=== PATIENT | male | born 1975 | race Caucasian/White ===

== ENCOUNTER 2022-08-22 08:57 | Outpatient (REF) | payer BC, SELFPAY ==
[2022-08-22 11:14] LABS: MANUAL DIFF FLAG NO
[2022-08-22 11:21] LABS: Basophils Absolute Auto 0.1 X10*3/uL (0.0-0.2); Basophils Percent Auto 0.8 % (0-2); Eosinophils Absolute Auto 0.2 X10*3/uL (0.0-0.4); Hematocrit 49.2 % (42.0-52.0); Hemoglobin 16.1 g/dl (14.0-18.0); Imm Gran Abs Auto 0.01 X10*3/uL (0.00-0.03); Imm Gran Pct Auto 0.2 % (0.0-0.4); Lymphocytes Absolute Auto 2.1 X10*3/uL (1.2-4.9); Lymphocytes Percent Auto 32.5 % (20-40); Mean Corpuscular HGB Conc 32.7 g/dl (31.0-36.0); Mean Corpuscular Hemoglobin 29.8 pg (27.0-33.0); Mean Corpuscular Volume 90.9 fL (80.0-98.0); Mean Platelet Volume 10.7 fL (9.4-12.4); Monocytes Absolute Auto 0.6 X10*3/uL (0.1-1.2); Monocytes Percent Auto 9.8 % (2-11); Neutrophils Absolute Auto 3.5 x10*3/uL (2.0-8.3); Neutrophils Percent Auto 53.7 % (45-73); Platelet Count 242 X10*3/uL (160-400); Red Blood Count 5.41 X10*6/uL (4.60-5.80); Red Cell Distribution Width 12.2 % (11.0-16.0); White Blood Count 6.4 X10*3/uL (4.8-10.8)
[2022-08-22 11:50] LABS: Alanine Aminotransferase 16 U/L (0-40); Albumin Level 4.2 g/dL (3.5-5.0); Alkaline Phosphatase 83 U/L (39-117); Anion Gap 11 (12-20); Aspartate Amino Transferase 21 U/L (5-37); Bilirubin Total 0.3 mg/dL (0.0-1.0); Blood Urea Nitrogen 16 mg/dL (9-16); Calcium 9.1 mg/dL (8.4-10.2); Carbon Dioxide 27 mmol/L (22-29); Chloride 106 mmol/L (96-108); Cholesterol 173 mg/dL; Estimated Glomerular Filt Rate > 60; Glucose Fasting 92 mg/dL (60-99); HDL Cholesterol 46 mg/dL; LDL Cholesterol Calculated 111 mg/dl; Potassium 4.2 mmol/L (3.3-5.1); Sodium 140 mmol/L (135-145); Total Protein 7.3 g/dL (6.5-8.0); Triglycerides 82 mg/dL
== END 2022-08-22 08:58 | disposition home or self-care (01) ==
LOC: HO.HMGCLDS 08:57
PROVIDERS: PCP Internal Medicine; Visit Provider Internal Medicine
DX: Z00.00 Encounter for general adult medical examination without abnormal findings (principal)
CPT/HCPCS: 36415; 80053; 80061; 85025

== ENCOUNTER 2023-03-30 08:30 | Outpatient (AMB) | payer BC, SELFPAY ==
[2023-03-30 08:31] VITALS: BP 106/72; PULSE 72; O2SAT 95; BMI 24.1
--- NOTE | 2023-03-30 08:31 | A.OFFPC_ITS ---
Vital Signs 03/30/23 08:31 Height 5 ft 10 in Weight 168 lb BMI 24.1 BP 106/72 Blood Pressure Location Lt brachial Position Sitting Pulse 72 Pulse Source Pulse Oximeter Pulse Oximetry (%) 95 Oxygen Delivery Method Room Air Intake Visit Reasons: ER follow up Intake Note: Pt is here today for ER follow up. Pt states that he went to [facility] ER. Allergies No Known Allergies Allergy (Verified 03/30/23 08:34) Medication List - Last Reconciled 03/30/23 by Mary Ray MD baclofen 10 mg PO BEDTIME meloxicam 15 mg PO DAILY Tobacco use date assessed: 03/30/23 Dental Screening Dental Screen Date: 03/30/23 Did you have a dental visit in the last 12 months?: Yes Did you have a dental problem in the last 6 months where you did not have access to dental care?: No Was dental information given to patient?: Patient has dentist HPI ER follow up HPI Details Pt presents for f/u ER visit for right flank and lower back pain, positional for 1 week. ER w/u was negative including CT of abd/pelvic. Patient has been taking ibuprofen with some relief. He denies fever chills nausea vomiting hematuria or dysuria, change in bowel habits. [facility], [facility] Surgical History History of nasal surgery Family History (Updated 03/30/23 @ 08:36 by Morena Lambert [facility]) Father No problems noted. Mother No problems noted. Social History Housing: House Patient Tobacco Use Status: Never used Tobacco e-Cigarette/Vaping Use: Never Used Current occupational status: employed Cognitive needs: No Hearing needs: No Vision needs: Yes Questionnaire PHQ-9 Over the last 2 weeks, how often have you been bothered by any of the following problems? 1. Little interest or pleasure in doing things: not at all 2. Feeling down, depressed, or hopeless: not at all 3. Trouble falling or staying asleep, or sleeping too much: not at all 4. Feeling tired or having little energy: not at all 5. Poor appetite or overeating: not at all 6. Feeling bad about yourself - or that you are a failure or have let yourself or your family down: not at all 7. Trouble concentrating on things, such as reading the newspaper or watching television: not at all 8. Moving or speaking so slowly that other people could have noticed. Or the opposite - being so fidgety or restless that you have been moving around a lot more than usual: not at all 9. Thoughts that you would be better off or of hurting yourself in some way: not at all Total score: 0 Depression Screening Interpretation: Negative Source: Developed by Drs. Juan Francisco Victor, Karen Kerns, Valentin Giron and colleagues, with an educational nanette from [employer] Thrive Questionnaire Date Thrive assessed: 03/30/23 I am a: Patient What is your living situation today?: I have a steady place to live Within the past 12 months, did the food you bought not last and you didn't have the money to get more?: Never true Within the past 12 months, did you worry whether your food would run out before you got money to buy more?: Never true Do you have trouble paying for medicines?: No Do you have trouble getting transportation to medical appointments?: No Do you have trouble paying your heating and electricity bill?: No Do you have trouble taking care of your child, family member or friend?: No Do you have trouble with day-to-day activities such as bathing, preparing meals, shopping, managing finances, etc.?: No Are you currently unemployed and looking for a job?: No Are you interested in more education?: No Please select the resources that you would like help with: None Currently or been in a relationship where the following occur: no concerns reported AUDIT C Alcohol Use Questionnaire (AUDIT-C) 1. How often do you have a drink containing alcohol?: Monthly or less 2. How many drinks containing alcohol do you have on a typical day when you are drinking?: 1 or 2 3. How often do you have six or more drinks on one occasion?: Never Total Score: 1 MADONNA-7 AMB Questionnaire MAODNNA-7 Date MADONNA - 7 assessed: 03/30/23 Feeling nervous, anxious, or on edge: 0 = Not at all Not being able to stop or control worryin = Not at all Worrying too much about different things: 0 = Not at all Trouble relaxin = Not at all Being so restless that it is hard to sit still: 0 = Not at all Becoming easily annoyed or irritable: 0 = Not at all Feeling afraid as if something awful might happen: 0 = Not at all Total MADONNA-7 score (0-4 normal; 5-9 mild; 10-14 moderate; 15-21 severe): 0 Source: Developed by Drs. Juan Francisco Victor, Karen Kerns, Valentin Giron and colleagues, with an educational nanette from [employer] Review of Systems Const All systems reviewed & are unremarkable except as noted in HPI and below Eyes Reports no additional complaints ENT Reports no additional complaints Card Reports no additional complaints Resp Reports no additional complaints GI Reports no additional complaints Reports no additional complaints Physical exam (Primary Care) Vital Signs: Last Vital Signs Pulse 72 03/30/23 08:31 BP 106/72 03/30/23 08:31 Pulse Ox 95 03/30/23 08:31 Oxygen Delivery Method Room Air 03/30/23 08:31 BMI result Body Mass Index 24.1 Tobacco/Smoking Status: Tobacco use Status Tobacco use date assessed 03/30/23 03/30/23 08:37 Patient Tobacco Use Status Never used Tobacco 03/30/23 08:37 e-Cigarette/Vaping Use Never Used 03/30/23 08:37 PHQ-9: PHQ-9 Score PHQ-9: Total score 0 03/30/23 08:37 Depression Screening Interpretation: Negative Thrive Assessment: Date of Thrive Assessment Date Thrive assessed 03/30/23 03/30/23 08:37 Currently or been in a relationship where the following occur: no concerns reported Const General: no acute distress HENMT Head: Yes normal to inspection Neck Neck: Yes supple Resp Effort & Inspection: normal respiratory effort Auscultation: clear to auscultation bilaterally Cardio Rhythm: regular rhythm Heart sounds: S1 normal heart sound present and S2 normal heart sound present GI Inspection: Yes normal to inspection Palpation (GI): Soft to palpation Percussion: Yes normal to percussion Auscultation: normal bowel sounds Assessment and Plan Assessment & Plan (1) Sciatica: Code(s): M54.30 - Sciatica, unspecified side Plan: Meloxicam and baclofen are prescribed and patient will be referred for physical therapy. he was given work restriction to decrease frequency of lifting and twisting body for 2 months Orders: Orders PT Evaluation and Treatment Today M54.30 - Sciatica, unspecified side Medications: New baclofen 10 mg PO BEDTIME 20 tabs 0RF meloxicam 15 mg PO DAILY 20 tabs 0RF Coding Level of Care Code Est Pt Level 3 (15812) Diagnoses Sciatica M54.30
== END 2023-03-30 09:06 | disposition home or self-care (01) ==
PROVIDERS: PCP Internal Medicine; Visit Provider Internal Medicine
DX: M54.30 Sciatica, unspecified side (principal)
CPT/HCPCS: 99213

== ENCOUNTER 2023-04-26 15:00 | Outpatient (RCR) | payer BC, SELFPAY ==
--- NOTE | 2023-04-05 15:52 | MHC.PT.EP ---
[facility] [place] Office [place] Office [place] Office [address] Brittani Naylor [address] [phone] F: [phone] F: [phone] F: [phone] F: [phone] Physical Therapy Plan of Care Date of Evaluation: Date of Surgery: n/a Diagnosis: sciatica Assessment: Patient is a 47 year old male presenting to PT with complaints of pain in his low back. Pt reports onset of pain began about 1 week ago due to insidious onset. He presents today with impairments in pain, ROM, core strength, and hip strength. 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 Clinical presentation today is most consistent with signs and sx associated with low back pain and pt will benefit from skilled PT 1 week x 4 weeks to address the following problems and impairments noted upon evaluation: pain, ROM, core strength, and hip strength. These problems limit the patient with the following functional activities: work, ADLs. The prescribed treatment plan of care is medically necessary. Co-morbidities of none were identified and taken into considerations of plan of care. Pt was educated on HEP, role of PT, prognosis, POC. Frequency and Duration: The patient will be seen 1 x week x 4 weeks Short Term Goals: Pt will demonstrate improved hip MMT strength by 1/3 grade in 2 weeks. Pt will demonstrate ability to perform PPT with good core recruitment in 2 weeks for improved lumbar stability. 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 Pt will demonstrate ability to complete ADLs with min to no pain in 4 weeks for return to PLOF. Pt will demonstrate ability to work a full day with min to no pain in 4 weeks for return to work at full duty. Treatment Plan: Modalities to reduce pain, spasms and effusion. Manual therapy to restore motion and function. Therapeutic exercise to improve strength and flexibility. Neuromuscular re-education for posture and balance. Therapeutic activities to return to functional activities of daily living. Electronically signed by: Evon Calle, PT, DPT, ATC Please sign and return to therapist. Thank you for your referral.
--- NOTE | 2023-05-28 07:44 | MHC.PT.DC ---
[facility] [place] Office [place] Office [place] Office [address] Brittani Naylor [address] [phone] F: [phone] F: [phone] F: [phone] F: [phone] Physical Therapy Discharge Report Diagnosis: sciatica Date of Surgery: n/a Date of Evaluation: 04/05/23 Date of Discharge: 05/28/23 Treatments to Date: 4 Cancellations to Date: 0 No Shows to Date: 1 Discharge Status: Visit Non-compliance Discharge Summary: Pt no showed his final appointment. He has not reached out in >30 days to be rescheduled and therefore to be d/c at this time. Electronically signed by: Evon Calle, PT, DPT, ATC Please sign and return to therapist. Thank you for your referral.
== END 2023-05-28 07:44 | disposition home or self-care (01) ==
LOC: HO.PTCHIC 15:00
PROVIDERS: PCP Internal Medicine; Visit Provider Internal Medicine
DX: M54.30 Sciatica, unspecified side (principal)
CPT/HCPCS: 97110; 97161

== ENCOUNTER 2023-05-04 11:53 | Outpatient (AMB) | payer BC, SELFPAY ==
[2023-05-04 12:06] VITALS: BP 108/64; PULSE 76; O2SAT 97; BMI 23.6
--- NOTE | 2023-05-04 12:06 | A.OFFPC_ITS ---
Vital Signs 05/04/23 12:06 Height 5 ft 10 in Weight 164 lb 6 oz BMI 23.6 BP 108/64 Blood Pressure Location Rt brachial Position Sitting Pulse 76 Pulse Source Pulse Oximeter Pulse Oximetry (%) 97 Oxygen Delivery Method Room Air Intake Visit Reasons: Follow up questions to discuss with the doctor Allergies No Known Allergies Allergy (Verified 05/04/23 12:07) Medication List - Last Reconciled 05/04/23 by Mary Ray MD Tobacco use date assessed: 03/30/23 HPI Follow up questions to discuss with the doctor HPI Details Pt presents for c/o constipation on and off for 2 weeks. Pt denies abd pain, hematochezia, N/V. Patient took baclofen and meloxicam 2 weeks ago for acute sciatica which resolved since then. Patient denies lower extremities pain or weakness. He had a CT of the abdomen in February for left flank pain which was consistent with constipation. Patient had negative Cologuard in August. [facility] Surgical History History of nasal surgery Family History Father No problems noted. Mother No problems noted. Social History Housing: House Patient Tobacco Use Status: Never used Tobacco e-Cigarette/Vaping Use: Never Used Current occupational status: employed Cognitive needs: No Hearing needs: No Vision needs: Yes Questionnaire Thrive Questionnaire Date Thrive assessed: 03/30/23 MADONNA-7 AMB Questionnaire MADONNA-7 Date MADONNA - 7 assessed: 03/30/23 Source: Developed by Drs. Juan Francisco Victor, Karen Kerns, Valentin Giron and colleagues, with an educational nanette from [employer]. Review of Systems Const All systems reviewed & are unremarkable except as noted in HPI and below Reports no additional complaints Eyes Reports no additional complaints ENT Reports no additional complaints Card Reports no additional complaints GI Reports no additional complaints Musc Reports no additional complaints Physical exam (Primary Care) Vital Signs: Last Vital Signs Pulse 76 05/04/23 12:06 BP 108/64 05/04/23 12:06 Pulse Ox 97 05/04/23 12:06 Oxygen Delivery Method Room Air 05/04/23 12:06 BMI result Body Mass Index 23.6 Tobacco/Smoking Status: Tobacco use Status Tobacco use date assessed 03/30/23 05/04/23 12:09 Patient Tobacco Use Status Never used Tobacco 05/04/23 12:09 e-Cigarette/Vaping Use Never Used 05/04/23 12:09 Thrive Assessment: Date of Thrive Assessment Date Thrive assessed 03/30/23 05/04/23 12:09 Const General: no acute distress HENMT Head: Yes normal to inspection Neck Neck: Yes supple Resp Effort & Inspection: normal respiratory effort Auscultation: clear to auscultation bilaterally Cardio Rhythm: regular rhythm Heart sounds: S1 normal heart sound present and S2 normal heart sound present GI Inspection: Yes normal to inspection Palpation (GI): Soft to palpation Percussion: Yes normal to percussion Auscultation: normal bowel sounds Assessment and Plan Assessment & Plan (1) Constipation: Code(s): K59.00 - Constipation, unspecified Plan: For worsening constipation patient was advised to start taking Citrucel daily, increase fiber and fluid intake, increase physical activity. He was advised to take MiraLax pr if there is no improvement on Citrucel. Patient will be referred to GI for colonoscopy Orders: Referrals Gastroenterology Referral Z00.00 - Encounter for general adult medical examination without abnormal findings Coding Level of Care Code Est Pt Level 3 (96532) Diagnoses Constipation K59.00
== END 2023-05-04 15:00 | disposition home or self-care (01) ==
PROVIDERS: PCP Internal Medicine; Visit Provider Internal Medicine
DX: K59.00 Constipation, unspecified (principal)
CPT/HCPCS: 99213

== ENCOUNTER 2023-06-30 10:48 | Outpatient (AMB) | payer BC, SELFPAY ==
--- NOTE | 2023-06-30 10:54 | A.OFFVIS_ITS ---
Intake Vital Signs 06/30/23 10:58 Height 5 ft 6 in Weight 176 lb BMI 28.4 BP 121/84 Blood Pressure Location Lt brachial Position Sitting Pulse 80 Intake Visit Reasons: [place] Screening Intake Note: Patient new consult for 1st pre colonoscopy screening. Patient cc: abdominal pain, hard stool and really discomfort. Denies any other GI issues. Chain Person Required: No Accompanied by: Self / Same As Patient Allergies No Known Allergies Allergy (Verified 06/30/23 10:54) Medication List - Last Reconciled 06/30/23 by Kerri Lee PA-C No Known Home Meds HPI HPI Comments History of Present Illness Details A 47 y/o male referred for index screening colonoscopy. He has no GI complaints Appetite is very good. Bowels are normal but hard -at times No respiratory or cardiac issues- LBP- wanders- had CT for kidney stones-was negative No nausea, vomiting, hematemesis, hematochezia fever or chills PFSH Surgical History History of nasal surgery Family History Father No problems noted. Mother No problems noted. Social History Housing: House Patient Tobacco Use Status: Never used Tobacco e-Cigarette/Vaping Use: Never Used Current occupational status: employed Cognitive needs: No Hearing needs: No Vision needs: Yes Review of Systems Const All systems reviewed & are unremarkable except as noted in HPI and below Card Denies chest pain and Denies dyspnea Resp Denies dyspnea GI Denies abdominal pain, Denies heartburn, Denies diarrhea, Denies loose stools, Denies nausea and Denies vomiting Musc Reports back pain Psych Reports anxiety Physical Exam Vital Signs: Last Vital Signs Pulse 80 06/30/23 10:58 BP 121/84 06/30/23 10:58 BMI result Body Mass Index 28.4 Const General: cooperative, healthy appearing and comfortable Orientation/consciousness: patient oriented x3 Limitations: no limitations Eyes Sclerae: sclerae normal Resp Effort & Inspection: normal respiratory effort and able to speak in complete sentences Auscultation: clear to auscultation bilaterally, no rales, no rhonchi and no wheezes Cardio Rate: regular rate Rhythm: regular rhythm Heart sounds: S1 normal heart sound present and S2 normal heart sound present GI Inspection: Yes normal to inspection Palpation (GI): Soft to palpation and nontender Auscultation: normal bowel sounds Skin General skin exam: no rashes or lesions noted Neuro General: patient oriented x3 Extrem General: Yes full ROM Psych Appearance: grossly normal and well kempt Mental Status: mental status grossly normal Speech and movement: Normal speech and movement present Affect: normal affect Attitude: cooperative Thought process: Normal thought process present Thought content: Normal thought content present Insight: Good insight present (Psych) Judgement: Good judgement present (Psych) Assessment & Plan Assessment & Plan (1) Constipation: Code(s): K59.00 - Constipation, unspecified Plan: Maintain high-fiber diet Stools softeners (2) Encounter for screening colonoscopy: Comment: Discussed procedure, rare risk, need for escorted due to anesthesia and prep Code(s): Z12.11 - Encounter for screening for malignant neoplasm of colon Plan: Index screening colonoscopy Plan Index screening colonoscopy MiraLax Gatorade split-Yemeni instructions given-reviewed with parachute panel joiner Orders: Orders Colonoscopy - GI Use Only Today Z12.11 - Encounter for screening for malignant neoplasm of colon Medications: New bisacodyl (Dulcolax (bisacodyl)) Day before procedure, prep day Take 4 tablets by mouth upon awakening followed by large glass of water 20 mg (4 x 5 mg) PO ONCE 1 day 4 tabs 0RF colonoscopy prep Z12.11 - Encounter for screening for malignant neoplasm of colon polyethylene glycol 3350 (Miralax) Take as directed by mouth the day before your procedure. 238 grams PO ONCE 1 day 238 grams 0RF laxative effect docusate sodium (Colace) 200 mg (2 x 100 mg) PO BEDTIME 60 caps 5RF 30 days Patient Instructions: Index screening colonoscopy MiraLax Gatorade split-Yemeni instructions given-reviewed with parachute panel joiner Encouraged to call questions or concerns Coding Level of Care Code New Pt Level 3 (03085) Diagnoses Constipation K59.00 Encounter for screening colonoscopy Z12.11 Time Spent (min) 30 Comment
[2023-06-30 10:58] VITALS: BP 121/84; PULSE 80; BMI 28.4
== END 2023-06-30 12:19 | disposition home or self-care (01) ==
PROVIDERS: PCP Internal Medicine; Visit Provider Physician Assistant
DX: K59.00 Constipation, unspecified (principal); Z12.11 Encounter for screening for malignant neoplasm of colon
CPT/HCPCS: 99203

== ENCOUNTER → 2023-06-30 10:48 | Outpatient (BNVA) | payer BC, SELFPAY | PROVIDERS: PCP Internal Medicine; Visit Provider Physician Assistant ==

== ENCOUNTER 2023-09-16 11:41 | Outpatient (AMB) | payer BC, SELFPAY ==
--- NOTE | 2023-09-16 12:03 | MHC.PC.OV ---
Vital Signs 09/16/23 12:04 Height 5 ft 6 in Weight 172 lb BMI 27.8 BP 110/64 Blood Pressure Location Lt brachial Position Sitting Pulse 78 Pulse Source Pulse Oximeter Temp 98 F Pulse Oximetry (%) 98 Oxygen Delivery Method Room Air Intake Visit Reasons: Annual PE/missed on 08/24/23 Intake Note: Pt is here today for PE. Allergies No Known Allergies Allergy (Verified 06/30/23 10:54) Medication List - Last Reconciled 09/16/23 by Mary Ray MD bisacodyl (Dulcolax (bisacodyl)) 20 mg (4 x 5 mg) PO ONCE 1 day docusate sodium (Colace) 200 mg (2 x 100 mg) PO BEDTIME 30 days polyethylene glycol 3350 (Miralax) 238 grams PO ONCE 1 day Tobacco use date assessed: 09/16/23 Dental Screening Dental Screen Date: 09/16/23 Did you have a dental visit in the last 12 months?: Yes Did you have a dental problem in the last 6 months where you did not have access to dental care?: No Was dental information given to patient?: Patient has dentist HPI Annual PE/missed on 08/24/23 HPI Details Pt presents for PE. Pt c/o persistent for 1 year an and off mid abd discomfort worse when bending forward or lifting heavy at work. Patient went to the ER in March and had negative CT of abdomen pelvis without contrast. Patient denies any relation to food intake. He denies nausea vomiting change in appetite hematochezia melena dysuria or urinary frequency hematuria weight lost fever chills night sweats. Patient noticed a change in his stool appearance, more fragmented. He has a colonoscopy scheduled for October. [facility] Surgical History History of nasal surgery Family History Father No problems noted. Mother No problems noted. Social History Housing: House Patient Tobacco Use Status: Never used Tobacco e-Cigarette/Vaping Use: Never Used Current occupational status: employed Cognitive needs: No Hearing needs: No Vision needs: Yes Questionnaire PHQ-9 Over the last 2 weeks, how often have you been bothered by any of the following problems? 1. Little interest or pleasure in doing things: not at all 2. Feeling down, depressed, or hopeless: not at all 3. Trouble falling or staying asleep, or sleeping too much: not at all 4. Feeling tired or having little energy: not at all 5. Poor appetite or overeating: not at all 6. Feeling bad about yourself - or that you are a failure or have let yourself or your family down: not at all 7. Trouble concentrating on things, such as reading the newspaper or watching television: not at all 8. Moving or speaking so slowly that other people could have noticed. Or the opposite - being so fidgety or restless that you have been moving around a lot more than usual: not at all 9. Thoughts that you would be better off or of hurting yourself in some way: not at all Total score: 0 Depression Screening Interpretation: Negative Depression Screening Done: Yes Source: Developed by Drs. Juan Francisco Victor, Karen Kerns, Valentin Giron and colleagues, with an educational nanette from [employer]. Thrive Questionnaire Date Thrive assessed: 03/30/23 I am a: Patient What is your living situation today?: I have a steady place to live Within the past 12 months, did the food you bought not last and you didn't have the money to get more?: Never true Within the past 12 months, did you worry whether your food would run out before you got money to buy more?: Never true Do you have trouble paying for medicines?: No Do you have trouble getting transportation to medical appointments?: No Do you have trouble paying your heating and electricity bill?: No Do you have trouble taking care of your child, family member or friend?: No Do you have trouble with day-to-day activities such as bathing, preparing meals, shopping, managing finances, etc.?: No Are you currently unemployed and looking for a job?: No Are you interested in more education?: No Please select the resources that you would like help with: None Currently or been in a relationship where the following occur: no concerns reported AUDIT C Alcohol Use Questionnaire (AUDIT-C) 1. How often do you have a drink containing alcohol?: Monthly or less 2. How many drinks containing alcohol do you have on a typical day when you are drinking?: 1 or 2 3. How often do you have six or more drinks on one occasion?: Never Total Score: 1 MADONNA-7 AMB Questionnaire MADONNA-7 Date MADONNA - 7 assessed: 09/16/23 Feeling nervous, anxious, or on edge: 0 = Not at all Not being able to stop or control worryin = Not at all Worrying too much about different things: 0 = Not at all Trouble relaxin = Not at all Being so restless that it is hard to sit still: 0 = Not at all Becoming easily annoyed or irritable: 0 = Not at all Feeling afraid as if something awful might happen: 0 = Not at all Total MADONNA-7 score (0-4 normal; 5-9 mild; 10-14 moderate; 15-21 severe): 0 Source: Developed by Drs. Juan Francisco Victor, Karen Kerns, Valentin Giron and colleagues, with an educational nanette from [employer]. Review of Systems Const All systems reviewed & are unremarkable except as noted in HPI and below Reports no additional complaints Eyes Reports no additional complaints ENT Reports no additional complaints Card Reports no additional complaints Resp Reports no additional complaints GI Reports no additional complaints Reports no additional complaints Physical exam (Primary Care) Vital Signs: Last Vital Signs Temp 98 F 09/16/23 12:04 Pulse 78 09/16/23 12:04 BP 110/64 09/16/23 12:04 Pulse Ox 98 09/16/23 12:04 Oxygen Delivery Method Room Air 09/16/23 12:04 BMI result Body Mass Index 27.8 Tobacco/Smoking Status: Tobacco use Status Tobacco use date assessed 09/16/23 09/16/23 12:10 Patient Tobacco Use Status Never used Tobacco 09/16/23 12:10 e-Cigarette/Vaping Use Never Used 09/16/23 12:10 PHQ-9: PHQ-9 Score PHQ-9: Total score 0 09/16/23 12:40 Depression Screening Interpretation: Negative Thrive Assessment: Date of Thrive Assessment Date Thrive assessed 03/30/23 09/16/23 12:10 Currently or been in a relationship where the following occur: no concerns reported Const General: no acute distress HENMT Head: Yes normal to inspection Ears: hearing grossly normal bilaterally Face and sinus: Yes normal facial exam Mouth: Normal oral and palatal mucosa present Eyes General: appearance normal, both eyes and all related structures Neck Neck: Yes no lymphadenopathy and Yes supple Resp Effort & Inspection: normal respiratory effort Auscultation: clear to auscultation bilaterally Cardio Rhythm: regular rhythm Heart sounds: S1 normal heart sound present and S2 normal heart sound present GI Other: Bulging in umbilical area, no tenderness Inspection: Yes normal to inspection Palpation (GI): Soft to palpation and No hepatosplenomegaly present Percussion: Yes normal to percussion Auscultation: normal bowel sounds Assessment and Plan Assessment & Plan (1) Umbilical hernia: Code(s): K42.9 - Umbilical hernia without obstruction or gangrene Plan: For chronic abdominal pain and possible umbilical hernia patient will be referred to a general surgeon (2) Annual physical exam: Code(s): Z00.00 - Encounter for general adult medical examination without abnormal findings Plan: Well-balanced diet regular physical activity discussed with the patient. He will return for fasting blood (3) Constipation: Code(s): K59.00 - Constipation, unspecified Plan: Patient was advised to start Citrucel supplement, increase fluid and fiber intake. Follow-up with GI for colonoscopy Orders: Orders Comprehensive Deputy. Panel Fast Today K59.00 - Constipation, unspecified, Z00.00 - Encounter for general adult medical examination without abnormal findings Complete Blood Count Auto Diff Today K59.00 - Constipation, unspecified, Z00.00 - Encounter for general adult medical examination without abnormal findings Lipid Panel Today K59.00 - Constipation, unspecified, Z00.00 - Encounter for general adult medical examination without abnormal findings UA w Microscopic Today K59.00 - Constipation, unspecified, Z00.00 - Encounter for general adult medical examination without abnormal findings Referrals General Surgery Referral K42.9 - Umbilical hernia without obstruction or gangrene Coding Level of Care Code Est Pt Prev Care 40-64y(75849) Diagnoses Umbilical hernia K42.9 Annual physical exam Z00.00 Constipation K59.00
[2023-09-16 12:04] VITALS: BP 110/64; PULSE 78; TEMP 36.6; O2SAT 98; BMI 27.8
== END 2023-09-16 13:01 | disposition home or self-care (01) ==
PROVIDERS: PCP Internal Medicine; Visit Provider Internal Medicine
DX: K42.9 Umbilical hernia without obstruction or gangrene (principal); Z00.00 Encounter for general adult medical examination without abnormal findings; K59.00 Constipation, unspecified
CPT/HCPCS: 99396

== ENCOUNTER 2023-09-25 08:11 | Outpatient (REF) | payer BC, SELFPAY ==
[2023-09-25 11:13] LABS: MANUAL DIFF FLAG NO
[2023-09-25 11:14] LABS: Basophils Percent Auto 0.5 % (0-2); Eosinophils Absolute Auto 0.2 X10*3/uL (0.0-0.4); Eosinophils Percent Auto 3.3 % (0-4); Hematocrit 48.1 % (42.0-52.0); Hemoglobin 15.8 g/dl (14.0-18.0); Imm Gran Abs Auto 0.01 X10*3/uL (0.00-0.03); Imm Gran Pct Auto 0.2 % (0.0-0.4); Lymphocytes Absolute Auto 2.1 X10*3/uL (1.2-4.9); Lymphocytes Percent Auto 33.8 % (20-40); Mean Corpuscular HGB Conc 32.8 g/dl (31.0-36.0); Mean Corpuscular Volume 91.3 fL (80.0-98.0); Mean Platelet Volume 11.2 fL (9.4-12.4); Monocytes Absolute Auto 0.7 X10*3/uL (0.1-1.2); Neutrophils Absolute Auto 3.2 x10*3/uL (2.0-8.3); Neutrophils Percent Auto 51.2 % (45-73); Platelet Count 228 X10*3/uL (160-400); Red Blood Count 5.27 X10*6/uL (4.60-5.80); Red Cell Distribution Width 12.4 % (11.0-16.0); White Blood Count 6.3 X10*3/uL (4.8-10.8)
[2023-09-25 11:21] LABS: Appearance Urine Clear; Color Urine Yellow; Glucose Urine UA Negative (Negative); Leukocyte Esterase Urine Negative (Negative); Nitrite Urine Negative (Negative); Specific Gravity - Urine 1.015 (1.005-1.025); Urine Blood Negative (Negative); Urine Ketones Negative (Negative); Urine Protein Negative (Neg-Trace)
[2023-09-25 11:28] LABS: Alanine Aminotransferase 28 U/L (0-40); Albumin Level 4.1 g/dL (3.5-5.0); Alkaline Phosphatase 81 U/L (39-117); Anion Gap 11 (12-20); Aspartate Amino Transferase 25 U/L (5-37); Bilirubin Total 0.9 mg/dL (0.0-1.0); Blood Urea Nitrogen 19 mg/dL (9-16); Carbon Dioxide 27 mmol/L (22-29); Chloride 104 mmol/L (96-108); Cholesterol 171 mg/dL (<200); Estimated Glomerular Filt Rate > 60; Glucose Fasting 80 mg/dL (60-99); HDL Cholesterol 48 mg/dL (>40); LDL Cholesterol Calculated 106 mg/dL (<100); Potassium 3.8 mmol/L (3.3-5.1); Sodium 138 mmol/L (135-145); Total Protein 7.5 g/dL (6.5-8.0); Triglycerides 86 mg/dL (<150)
[2023-09-25 11:30] LABS: Bacteria Urine None Seen (None Seen); Hyaline Casts Urine 0-2 /LPF (0-2); RBC Urine 0-2 /HPF (0-2); Squamous Epithelial Cell Urine 0-2 /HPF (0-2); WBC Urine 0-5 /HPF (0-5)
== END 2023-09-25 08:12 | disposition home or self-care (01) ==
LOC: HO.HMGCLDS 08:11
PROVIDERS: PCP Internal Medicine; Visit Provider Internal Medicine
DX: Z00.00 Encounter for general adult medical examination without abnormal findings (principal); K59.00 Constipation, unspecified
CPT/HCPCS: 36415; 80053; 80061; 81001; 85025

== ENCOUNTER 2024-06-29 08:37 | Day surgery (SDC) | payer BC, SELFPAY ==
[2024-06-27 15:09] VITALS: BMI 28.4
--- NOTE | 2024-06-28 09:41 | HO.ANESPROP2 ---
Documented by User: Daija Melton NP 06/28/24 09:42 HPI - Anesthesia Eval Consult details Narrative: 48yo M for Colonoscopy PMFSH Active Problems Active Problems: All Active Problems Umbilical hernia (Acute) Encounter for screening colonoscopy (Acute) Constipation (Acute) Sciatica (Acute) Annual physical exam (Acute) Past Medical History Medical History Constipation Family History Family History Father No problems noted. Mother No problems noted. Surgical History Surgical History History of nasal surgery Social History Social History Housing: House Patient Tobacco Use Status: Never used Tobacco e-Cigarette/Vaping Use: Never Used Use of substances other than those prescribed or required for medical reasons: No Have you been hit, kicked, punched, or otherwise hurt by someone within the past year? If so, by whom?: No Are you DNR?: No Advance Directives: No Advance Directives Information Provided: Yes Recently lost weight without trying: No Current occupational status: employed Cognitive needs: No Hearing needs: No Vision needs: Yes Meds Allergies Allergy/AdvReac Type Severity Reaction Status Date / Time No Known Allergies Allergy Verified 06/30/23 10:54 Exam Height,Weight and Vital Signs: Height 5 ft 6 in Weight 79.832 kg Assessment and Plan Assessment Anesthesia Assessment: Chart Reviewed Documented by User: Verenice Burrell MD 06/29/24 11:10 PMFSH Past Medical History Medical History Constipation Family History Family History Father No problems noted. Mother No problems noted. Family history of problems with anesthesia: No Surgical History Surgical History History of nasal surgery History of Problems with Anesthesia: No Social History Social History Housing: House Patient Tobacco Use Status: Never used Tobacco e-Cigarette/Vaping Use: Never Used Use of substances other than those prescribed or required for medical reasons: No Have you been hit, kicked, punched, or otherwise hurt by someone within the past year? If so, by whom?: No Are you DNR?: No Advance Directives: No Advance Directives Information Provided: Yes Recently lost weight without trying: No Current occupational status: employed Cognitive needs: No Hearing needs: No Vision needs: Yes Meds Allergies Allergy/AdvReac Type Severity Reaction Status Date / Time No Known Allergies Allergy Verified 06/30/23 10:54 Exam Airway Mallampati Class: II TM Dist: >3cm Neck ROM: Full Heart: rrr Lungs: cta Assessment and Plan Assessment Anesthesia Assessment: Anesthesia Plan Discussed Final Anesthetic Review Family History of Problems with Anesthesia: No History of Problems with Anesthesia: No NPO: Yes Final Preanesthetic Review: No Changes in Pt Med Stat, Meds/Allgs Chart Reviewed, Consent Obtained/Reviewed and Anes Risks/Benef Reviewed Patient Risk: Low Anesthetic Plan Anesthetic Plan: MAC: Disposition: Standard PACU
[2024-06-29 09:49] VITALS: BP 132/94; PULSE 89; RESP 16; TEMP 36.8; O2SAT 98; BMI 24.7
[2024-06-29] MEDS: Lactated Ringers 1,000 ML 100 ML IVCONT (10:04)
--- NOTE | 2024-06-29 10:55 | MHC.SHP ---
Pre-Procedural Eval Section A - 24 Hr Update-Section A only Date of Service: 06/29/24 Section B - Complete if H&P > 30 days Chief Complaint: screening Relevant Family History (Specify if Yes): No Relevant Social History: None Present Medications: see Short Stay Collaborative assessment Medical History: No relevant PMH History of Previous Operations: Relevant previous surgery/procedure and date(s) (nasal surgery) Allergies: Allergies Allergy/AdvReac Type Severity Reaction Status Date / Time No Known Allergies Allergy Verified 06/30/23 10:54 Review of Systems Sugical H&P ROS: Negative: Constitution, Cardiovascular, Respiratory, Neurological, Psychiatric, Hem-Onc, Allergic/Immunologic, Gastrointestinal, Genitourinary, Musculoskeletal, Integumentary, Endocrine and Eyes/Ears/Nose/Throat Exam Surgical H&P Exam: Normal: HEENT, Normal: Heart, Normal: Lungs, Normal: Extremities, Normal: Abdomen, Normal: Skin and Normal: Neurological Plan Diagnosis/Plan: Unchanged I have reviewed the history and physical and performed a pertinent physical examination on my patient. No changes have occurred unless specified. Time Spent With Patient Time: Total time managing care of this patient today ____ minutes.
--- NOTE | 2024-06-29 11:29 | P.OPN-COLO_ITS ---
Colonoscopy Operative Note Operative Note Date of Service: 06/29/24 Narrative: Operative Information Procedure Description: Colonoscopy Indication: screening Anesthesia: MAC COLONOSCOPY Instrument: Olympus variable stiffness pediatric scope 190L Colonoscopy Monitoring: Vital signs and clinical assessment, continuous EKG monitoring, Pulse oximetry, Carbon Dioxide monitoring and blood pressure monitoring were done throughout the procedure. Colon withdrawal time was 6 minutes. Procedure: The patient was placed in the left lateral decubitis position and pre-procedure medications were administered. After a digital rectal examination of the ano-rectum, the video colonoscope was inserted into the rectum and advanced through the colon to the cecum/TI. The colonoscope was slowly withdrawn in a retrograde panoramic fashion and the colon mucosa was carefully examined including a retroflexed view of the rectum. Findings and interventions are described below. Procedure Difficulty: easy Findings: Terminal Ileum-normal Cecum:normal right sided retroflexion- normal Ascending Colon: normal Transverse Colon -normal Descending Colon:normal Sigmoid Colon: normal Rectum: Retroflexion with small internal hemorrhoids seen, grade I, 4-5 mm sessile polyp removed with cold forceps Anorectum - normal Intervention: cold forceps Colon preparation: [place] Bowel Preparation Scale Right colon; 2 Transverse colon: 2 Left colon; 2 (0 = Unprepared colon segment with mucosa not seen due to solid stool that cannot be cleared. 1 = Portion of mucosa of the colon segment seen, but other areas of the colon segment not well seen due to staining, residual stool and/or opaque liquid. 2 = Minor amount of residual staining, small fragments of stool and/or opaque liquid, but mucosa of colon segment seen well. 3 = Entire mucosa of colon segment seen well with no residual staining, small fragments of stool or opaque liquid) Impression and Post Procedure Diagnosis: colon polyp internal hemorrhoids Plan: High fiber diet leaflet Avoid straining at stool, epsom salts and sitz bath, anusol supps or cream Repeat Colonoscopy in 5-7 years if adenomatous polyp, 10 yrs if hyperplastic or earlier if clinically indicated Above findings were reviewed with the patient and relevant handouts were provided if indicated.
[2024-06-29 11:32] VITALS: BP 115/84; PULSE 100; RESP 16; TEMP 36.6; O2SAT 99
[2024-06-29 11:47] VITALS: BP 125/79; PULSE 79; RESP 20; TEMP 36.4; O2SAT 96
== END 2024-06-29 12:23 | disposition home or self-care (01) ==
PROVIDERS: PCP Internal Medicine; Visit Provider Internal Medicine Gastroenterology
PROC: 0DJD8ZZ Inspection of Lower Intestinal Tract, Via Natural or Artificial Opening Endoscopic (ICD-10-PCS; CPT 45378; principal; 2024-06-29 11:40)
DX: Z12.11 Encounter for screening for malignant neoplasm of colon (principal); K62.1 Rectal polyp; K64.0 First degree hemorrhoids; K59.00 Constipation, unspecified
CPT/HCPCS: 45380; 88305; J2704

== ENCOUNTER → 2024-06-29 08:37 | Outpatient (BNV) | payer BC, SELFPAY | PROVIDERS: PCP Internal Medicine; Visit Provider Internal Medicine Gastroenterology | DX: Z12.11 Encounter for screening for malignant neoplasm of colon (principal); K63.5 Polyp of colon; K64.0 First degree hemorrhoids | CPT/HCPCS: 45380 ==

== ENCOUNTER 2024-07-14 12:34 | Outpatient (AMB) | payer BC, SELFPAY ==
[2024-07-14 12:38] VITALS: BP 136/84; PULSE 72; O2SAT 97; BMI 25.5
--- NOTE | 2024-07-14 12:38 | A.OFFPC_ITS ---
Vital Signs 07/14/24 12:38 Height 5 ft 8.11 in Weight 168 lb BMI 25.5 BP 136/84 Blood Pressure Location Lt brachial Position Sitting Pulse 72 Pulse Source Pulse Oximeter Pulse Oximetry (%) 97 Oxygen Delivery Method Room Air Intake Visit Reasons: Colonoscopy forms Intake Note: Pt is here today for a follow up visit. Allergies No Known Allergies Allergy (Verified 07/14/24 12:39) Tobacco use date assessed: 09/16/23 Dental Screening Dental Screen Date: 09/16/23 HPI Colonoscopy forms HPI Details Pt presents for follow-up after colonoscopy, which was normal. Patient is concerned about intermittent bloating and discomfort in the left upper quadrant lasting a few minutes. He denies nausea vomiting pain after eating. Patient reports stool consistency becoming more fragmented but denies constipation hematochezia melena. He denies any change in his diet [facility] Medical History Constipation Surgical History History of nasal surgery Family History Father No problems noted. Mother No problems noted. Social History Housing: House Patient Tobacco Use Status: Never used Tobacco e-Cigarette/Vaping Use: Never Used Current occupational status: employed Cognitive needs: No Hearing needs: No Vision needs: Yes Questionnaire PHQ-9 Over the last 2 weeks, how often have you been bothered by any of the following problems? 1. Little interest or pleasure in doing things: several days 2. Feeling down, depressed, or hopeless: not at all 3. Trouble falling or staying asleep, or sleeping too much: several days 4. Feeling tired or having little energy: several days 5. Poor appetite or overeating: not at all 6. Feeling bad about yourself - or that you are a failure or have let yourself or your family down: not at all 7. Trouble concentrating on things, such as reading the newspaper or watching television: not at all 8. Moving or speaking so slowly that other people could have noticed. Or the opposite - being so fidgety or restless that you have been moving around a lot more than usual: not at all 9. Thoughts that you would be better off or of hurting yourself in some way: not at all Total score: 3 Depression Screening Interpretation: Negative Depression Screening Done: Yes 45826 - PHQ-9 Billing: Yes Source: Developed by Drs. Juan Francisco Victor, Karen Kerns, Valentin Giron and colleagues, with an educational nanette from [employer]. Thrive Questionnaire Date Thrive assessed: 03/30/23 I am a: Patient What is your living situation today?: I have a steady place to live Within the past 12 months, did the food you bought not last and you didn't have the money to get more?: Never true Within the past 12 months, did you worry whether your food would run out before you got money to buy more?: Never true Do you have trouble paying for medicines?: No Do you have trouble getting transportation to medical appointments?: No Do you have trouble paying your heating and electricity bill?: No Do you have trouble taking care of your child, family member or friend?: No Do you have trouble with day-to-day activities such as bathing, preparing meals, shopping, managing finances, etc.?: No Are you currently unemployed and looking for a job?: No Are you interested in more education?: No Please select the resources that you would like help with: None Currently or been in a relationship where the following occur: No concerns reported THRIVE Score: 0 AUDIT C Alcohol Use Questionnaire (AUDIT-C) 1. How often do you have a drink containing alcohol?: Monthly or less 2. How many drinks containing alcohol do you have on a typical day when you are drinking?: 1 or 2 3. How often do you have six or more drinks on one occasion?: Never Total Score: 1 MADONNA-7 AMB Questionnaire MADONNA-7 Date MADONNA - 7 assessed: 09/16/23 Feeling nervous, anxious, or on edge: 0 = Not at all Not being able to stop or control worryin = Not at all Worrying too much about different things: 0 = Not at all Trouble relaxin = Not at all Being so restless that it is hard to sit still: 0 = Not at all Becoming easily annoyed or irritable: 0 = Not at all Feeling afraid as if something awful might happen: 0 = Not at all Total MADONNA-7 score (0-4 normal; 5-9 mild; 10-14 moderate; 15-21 severe): 0 Source: Developed by Drs. Juan Francisco Victor, Karen Kerns, Valentin Giron and colleagues, with an educational nanette from [employer]. Review of Systems Const All systems reviewed & are unremarkable except as noted in HPI and below Card Reports no additional complaints Resp Reports no additional complaints GI Reports no additional complaints Reports no additional complaints Physical exam (Primary Care) Vital Signs: Last Vital Signs Pulse 72 07/14/24 12:38 BP 136/84 07/14/24 12:38 Pulse Ox 97 07/14/24 12:38 Oxygen Delivery Method Room Air 07/14/24 12:38 BMI result Body Mass Index 25.5 Tobacco/Smoking Status: Tobacco use Status Tobacco use date assessed 09/16/23 07/14/24 12:39 Patient Tobacco Use Status Never used Tobacco 07/14/24 12:39 e-Cigarette/Vaping Use Never Used 07/14/24 12:39 PHQ-9: PHQ-9 Score PHQ-9: Total score 3 07/14/24 12:39 Depression Screening Interpretation: Negative Thrive Assessment: Date of Thrive Assessment Date Thrive assessed 03/30/23 07/14/24 12:39 Currently or been in a relationship where the following occur: No concerns reported Const General: no acute distress HENMT Head: Yes normal to inspection Throat: Yes posterior oropharynx normal Resp Effort & Inspection: normal respiratory effort Auscultation: clear to auscultation bilaterally Cardio Rhythm: regular rhythm Heart sounds: S1 normal heart sound present and S2 normal heart sound present GI Inspection: Yes normal to inspection Palpation (GI): Soft to palpation Percussion: Yes normal to percussion Auscultation: normal bowel sounds Coding Level of Care Code Est Pt Level 3 (12295) Diagnoses IBS (irritable bowel syndrome) K58.9 Assessment & Plan Assessment & Plan (1) IBS (irritable bowel syndrome): Code(s): K58.9 - Irritable bowel syndrome, unspecified Category: Medical Plan: Patient was advised to increase fiber and fluid intake and probiotics as needed
== END 2024-07-14 13:19 | disposition home or self-care (01) ==
LOC: HO.HMCC 12:35
PROVIDERS: PCP Internal Medicine; Visit Provider Internal Medicine
DX: K58.9 Irritable bowel syndrome, unspecified (principal)

== ENCOUNTER → 2024-07-14 12:34 | Outpatient (BNVA) | payer BC, SELFPAY | PROVIDERS: PCP Internal Medicine; Visit Provider Internal Medicine ==